=== PATIENT | male | born 1985 | race Hispanic/Latino ===

== ENCOUNTER 2017-09-24 11:07 | Day surgery (SDC) | payer OTHER ==
[2017-09-23 11:12] VITALS: BMI 25.7
[2017-09-24] MEDS ORDERED: Bupivacaine PF 0.5% 30 ML VIAL ONE ×2 (12:36→13:48)
[2017-09-24] MEDS ORDERED: CEFAZOLIN/Water 2 GM/20 ML SYRINGE ONE (12:38)
[2017-09-24] MEDS ORDERED: Diprivan 20 ML ONE (12:46)
[2017-09-24 13:08] LABS: Hemoglobin 15.2 g/dL (14.0-18.0); Mean Corpuscular Hemoglobin 29.6 pg (27.0-31.0); Mean Corpuscular Volume 87.1 fl (80.0-94.0); Mean Platelet Volume 7.5 fL (7.4-10.4); Platelet Count 234 thou/uL (130-400); RBC Distribution Width 12.1 % (11.5-14.5); Red Blood Cell (RBC) Count 5.14 mill/uL (4.70-6.10); White Blood Cell (WBC) Count 7.6 thou/uL (4.8-10.8)
[2017-09-24] MEDS ORDERED: Promethazine HCl 25 MG/ML VIAL ONE (13:19)
[2017-09-24] MEDS ORDERED: Fentanyl 100 MCG/2 ML VIAL ONE (13:19)
[2017-09-24] MEDS ORDERED: Midazolam HCl 2 mg/2 ml Vial ONE (13:19)
[2017-09-24] MEDS ORDERED: Lidocaine 2% w/Epinephrine 1:200K 20 ML VIAL ONE (13:48)
--- NOTE | 2017-09-24 16:35 | OP ---
DATE OF PROCEDURE: 09/24/2017 PREOPERATIVE DIAGNOSIS: Left knee posterior horn medial meniscus tear. POSTOPERATIVE DIAGNOSES: Left knee posterior horn medial meniscus tear. PROCEDURES PERFORMED: Left knee arthroscopy and partial medial meniscectomy. SURGEON: Ky Vargas M.D. CENTRIFUGAL SCREEN TENDER: None. BLOOD LOSS: Minimal. COMPLICATIONS: None. ANESTHESIA: The patient had general anesthetic as well as a local knee block. DISPOSITION: To recovery room in stable condition. INDICATIONS: A 32-year-old active male who comes in complaining of pain, catching, and swelling of t he knee. MRI confirmed posterior horn medial meniscus tear and at this time, he opted to have surger y. DESCRIPTION OF PROCEDURE: After all appropriate consent forms were explained and signed, he was take n to the operating room and at this time, he was given general anesthetic. Once anesthesia was appro priate, the tourniquet was placed on the left thigh and leg was then placed in an arthroscopic leg ho lder. The limb was then prepped and draped in standard surgical fashion. Limb was exsanguinated and tourniquet was taken up to 300 mmHg. An inferolateral portal was established and the scope was plac ed into the knee joint. Needle localization technique was then used to make a medial working portal. Diagnostic arthroscopy commenced in the notch. ACL and PCL probed and found to be intact. The med ial compartment showed the posterior horn of the medial meniscus to be torn and there was a flap tear component. Biter and shaver were used to remove this component and remaining meniscus was intact. The cartilage was in good condition. Lateral compartment was evaluated and found to be intact. Gutt ers were swept through more clean and the patellofemoral joint was in excellent condition. At this t carlota, the scope was removed, the knee was drained, and portals were closed with simple nylon stitch. Bulky sterile dressing was applied and the tourniquet was let down. Toes pinked up nicely. The katie ent was awakened and taken to the recovery room in stable condition. All counts were correct at the end of the case and he received preoperative IV antibiotics.
[2017-09-24] MEDS ORDERED: HYDROcodone/Acetaminophen 10/325 mg Tablet ONE (17:22)
== END 2017-09-24 18:38 | disposition home or self-care (01) ==
LOC: SDC 11:07
PROVIDERS: ATTEND Orthopaedic Surgery
PROC: 0SBD4ZZ Excision of Left Knee Joint, Percutaneous Endoscopic Approach (ICD-10-PCS; principal; 2017-09-24)
DX: S83.242A Other tear of medial meniscus, current injury, left knee, initial encounter (principal); Z98.890 Other specified postprocedural states
CPT/HCPCS: 85027; G8978-GP-CM; G8979-GP-CM; G8980-GP-CM; J2250; J2550; J2704; J3010; S0020

== ENCOUNTER 2025-04-16 09:33 | Outpatient (CLI) | payer BC | END 2025-04-16 09:34 | disposition home or self-care (01) | LOC: SCSMRI 09:33 | PROVIDERS: ATTEND Family Medicine Sports Medicine | DX: S56.511A Strain of other extensor muscle, fascia and tendon at forearm level, right arm, initial encounter (principal); S53.31XA Traumatic rupture of right ulnar collateral ligament, initial encounter ==